=== PATIENT | male | born 1980 | race African-American/Black ===

== ENCOUNTER 2016-08-01 15:38 | Emergency (ER) | payer MEDICARE, MEDICAID ==
[~2016-08-01] VITALS: Ht 180.3 cm; Wt 76.0 kg
[~2016-08-01 15:38] MED LIST: BACT800T5 PO; PERC5TAB12 PO
[2016-08-01 15:40] VITALS: BP 138/76; PULSE 61; RESP 17; TEMP 98; O2SAT 99
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
[2016-08-01 17:13] VITALS: BP 106/63; PULSE 62; RESP 14; TEMP 98.3; O2SAT 98
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
[2016-08-01] MEDS ORDERED: ACETAMINOPHEN/CODEINE 300 MG/30 MG TAB PO ONE (17:30)
[2016-08-01] MEDS ORDERED: ONDANSETRON ODT 4 MG TAB PO ONE (17:30)
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
[2016-08-01] MEDS ORDERED: IBUP800T23 PO (18:13)
== END 2016-08-01 18:25 | disposition home or self-care (01) ==
LOC: NEPD 15:38
DX: S00.83XA Contusion of other part of head, initial encounter (principal); S16.1XXA Strain of muscle, fascia and tendon at neck level, initial encounter; S46.911A Strain of unspecified muscle, fascia and tendon at shoulder and upper arm level, right arm, initial encounter; Y04.2XXA Assault by strike against or bumped into by another person, initial encounter; Y93.9 Activity, unspecified; Y92.89 Other specified places as the place of occurrence of the external cause; Y99.9 Unspecified external cause status
CPT/HCPCS: 70450; 70486; 72125; 73030